=== PATIENT | female | born 1990 | race Caucasian/White ===

== ENCOUNTER → 2016-11-23 | Outpatient (CLI) | payer OTHER ==
[~2016-11-23] MED LIST: BCPILLS PO
== END | disposition home or self-care (01) ==
LOC: C.PAPS 16:52
PROVIDERS: ATTEND Obstetrics & Gynecology
DX: Z01.419 Encounter for gynecological examination (general) (routine) without abnormal findings (principal)

== ENCOUNTER → 2018-02-12 | Outpatient (CLI) | payer OTHER | END | disposition home or self-care (01) | LOC: C.PAPS 11:21 | PROVIDERS: ATTEND Physician Assistant | DX: Z01.419 Encounter for gynecological examination (general) (routine) without abnormal findings (principal) ==

== ENCOUNTER 2022-11-27 17:45 | Inpatient (IN) ==
--- NOTE | 2022-11-27 18:02 | Emergency Department Note ---
Impression & Plan Labor, precipitous, delivered ED Provider Note NAME: CATHLEEN VOGEL AGE: 32 SEX: F : 1990 ARRIVES VIA: Ambulance INFORMANT: Patient, ED PROVIDER(S): Shadi Tejada DO CHIEF COMPLAINT: Imminent delivery HPI: The patient is a 32-year-old female who presented to the emergency department with an eminent delivery. Patient is a prima who is approximately 39 weeks with a single intrauterine gestation. The patient noticed water breaking approximately 1 hour ago and since that time has had a rather quick progression of her labor. She was fully dilated according to the prehospital personnel. She was brought directly to room B1. The patient denies having any fevers or recent trauma. All of her work-up was done prenatally already with the [facility] group. Labor and delivery as well as pediatrics are at the bedside prior to the arrival of the patient. ROS: See above HPI for pertinent positives & negatives. A total of 10 systems reviewed and were otherwise negative. PAST MEDICAL HISTORY: See Below PAST SURGICAL HISTORY: See Below FAMILY HISTORY: See Below SOCIAL HISTORY: See Below HOME MEDICATIONS: See Below ALLERGIES: See Below VITALS: See Below PHYSICAL EXAMINATION: GENERAL: The patient is awake and alert. She appears to be uncomfortable and in pain. EYES: The conjunctivae are clear. The pupils are round and reactive. RESPIRATORY: Normal respiratory effort is noted there is no evidence of wheezing rhonchi or rales CARDIOVASCULAR: Regular rate and rhythm noted there no murmurs rubs or gallops normal S1 normal S2. GASTROINTESTINAL: The abdomen is gravid in appearance. PELVIS: External pelvic exam revealed a presenting head. Scant bleeding was noted.. SKIN: There is no obvious evidence of any rash. There are no petechiae, pallor or cyanosis noted. NEUROLOGIC: Patient is awake alert and oriented x3 MEDICAL DECISION MAKING: The patient is a 32-year-old female who presented to the emergency department for an evaluation after her water broke and she had an acute onset of labor. The patient was evaluated by the prehospital personnel. She was found to be completely dilated. OB and peds arrived prior to the patient. Breathing was set up. The MANAGER LPN physician arrived just as the patient delivered. There was a nuchal cord which resolved on delivery. Child was stimulated and was crying appropriately. The child was well-appearing. The child was stimulated and then given to the mother. Placenta delivery was still pending but at the request of OB and peds the patient was taken directly to labor and delivery for further expectant management and care. Triage Nursing notes reviewed. Prior medical records reviewed Vital Signs: reviewed and remarkable for no significant abnormalities Differential diagnosis: Differential diagnosis in this patient could include breech delivery, multiple gestation, premature delivery, a sending infection and other differential diagnoses were considered. ER treatment provided: See below Diagnostics interpreted by me: Consultation(s): none ED COURSE: Procedures: The child was delivered vaginally in room B1. Dr Sheikh had just arrived in the room. The [employer] nurses were present. Pediatrics was present. A nuchal cord was noted on delivery. The child was stimulated and was crying well. Cord was cut by the father. Past Med/Surg History Social History Smoking Status: Unknown if ever smoked Preferred Language: Australian Feels Safe at Home: Yes Results & Data (ED) Vital Signs Vital Signs - 24 hr 11/27/22 17:59 11/27/22 18:09 Oxygen Delivery Method Room Air Sepsis Recent Fever Within 48 Hours No Sepsis New/Unexplained Change in Mental Status No Sepsis Action Taken by Nursing No Action Required Administered Medications Discontinued Medications Butorphanol Tartrate (Butorphanol Tartrate 1 Mg/Ml Vial) Confirm Administered Dose 1 mg .ROUTE .STK-MED ONE Stop: 11/27/22 18:17 Last Admin: 11/27/22 18:55 Dose: 1 mg Documented By: RENA Co-signed By: MIGUEL A Lidocaine HCl (Lidocaine 1% Local 20 Ml Vial) Confirm Administered Dose 1 ml .ROUTE .STK-MED ONE Stop: 11/27/22 18:08 Last Admin: 11/27/22 18:55 Dose: 1 ml Documented By: RENA Lidocaine HCl (Lidocaine 1% Local 20 Ml Vial) Confirm Administered Dose 1 ml .ROUTE .STK-MED ONE Stop: 11/27/22 18:12 Last Admin: 11/27/22 18:55 Dose: 1 ml Documented By: RENA Lidocaine HCl (Lidocaine 1% Mpf 5 Ml Vial) Confirm Administered Dose 10 ml .ROUTE .STK-MED ONE Stop: 11/27/22 18:27 Last Admin: 11/27/22 18:56 Dose: Not Given Documented By: RENA Lidocaine HCl (Lidocaine 1% Mpf 5 Ml Vial) Confirm Administered Dose 10 ml .ROUTE .STK-MED ONE Stop: 11/27/22 18:29 Last Admin: 11/27/22 18:56 Dose: Not Given Documented By: RENA Oxytocin (Oxytocin 10 Units/Ml Vial) Confirm Administered Dose 10 units .ROUTE .STK-MED ONE Stop: 11/27/22 18:05 Last Admin: 11/27/22 18:56 Dose: Not Given Documented By: RENA Oxytocin (Oxytocin 30 Units/500ml Nss) Confirm Administered Dose 30 units IV .STK-MED ONE Stop: 11/27/22 18:06 Last Admin: 11/27/22 18:55 Dose: 30 units Documented By: RENA Discharge Plan Visit Data Chief Complaint: Vaginal Pain ED Provider: Shadi Tejada Discharge Problem: Labor, precipitous, delivered Patient Disposition: Admitted As Inpatient Discharge Instructions Interventions: ED Discharge Assessment Last Done: 11/27/22 18:09
[2022-11-27] MEDS ORDERED: OXYTOCIN 10 UNITS/ML VIAL ONE (18:04)
[2022-11-27] MEDS ORDERED: OXYTOCIN 30 UNITS/500ML NSS IV ONE (18:05)
[2022-11-27] MEDS ORDERED: LIDOCAINE 1% LOCAL 20 ML VIAL ONE ×2 (18:07→18:11)
[2022-11-27] MEDS ORDERED: BUTORPHANOL TARTRATE 1 MG/ML VIAL ONE ×2 (18:16→19:06)
[2022-11-27] MEDS ORDERED: LIDOCAINE 1% MPF 5 ML VIAL ONE ×2 (18:26→18:28)
[2022-11-27] MEDS ORDERED: DIPHTHERIA/TETANUS/PERTUSSIS 0.5mL SYR/VIAL (Age 7+yrs) IM ONE (19:13)
[2022-11-27] MEDS ORDERED: OXYTOCIN 30 UNITS/500 ML BAG IV PRN (19:13)
[2022-11-27] MEDS ORDERED: oxyCODONE/ACETAMINOPHEN 5mg/325mg TAB PO PRN (19:13)
[2022-11-27] MEDS ORDERED: BUTORPHANOL TARTRATE 1 MG/ML VIAL IV PRN (19:13)
[2022-11-27] MEDS ORDERED: MEASLES, MUMPS & RUBELLA VIRUS VIAL SQ ONE (19:13)
[2022-11-27] MEDS ORDERED: HYDROCORTISONE ACETATE 25 MG SUPP PR PRN (19:13)
[2022-11-27] MEDS ORDERED: BENZOCAINE 20% AER SPR 82.5 GM CAN EXT PRN (19:13)
[2022-11-27] MEDS ORDERED: ACETAMINOPHEN 325 MG TAB PO PRN (19:13)
[2022-11-27] MEDS ORDERED: bisacodyL 10 MG SUPP PR PRN (19:13)
--- NOTE | 2022-11-27 19:25 | Delivery Summary ---
Vaginal Delivery Summary Date of Service November 27, 2022 Vaginal Delivery Summary Patient is a 32-year-old G1, P0 at 38 weeks and 6 days of gestation who started to feel contractions around 11 AM but they were irregular every 10 to 15 minutes and mild. She felt a gush of clear fluid leakage at 4 PM and then contractions started after 4:30 PM. She called our office and recommended to come to labor and delivery. After [place] on the way here she felt more contractions and pressure and urge to push. They called ambulance and they came with ambulance to the ER where she was in active labor and head was over an intact perineum. I met her in the ER in room B1. With the next contraction patient pushed and delivered the head without difficulty. Then the shoulders were delivered with minimal traction. There was a nuchal cord around the neck x1 which was reduced and the baby was handed off to the mother that her mouth and nose were suctioned, the cord was clamped x2 and cut at 1 minute delay. The baby was vigorously moving and crying at that point. The time of the delivery was 1748. The baby was taken off by pediatric team cleaned dried and taken off to nursery. Patient had placenta in uterus and had no bleeding. She was taken to labor and delivery in the stretcher immediately after delivery. In labor room the placenta was found to be in the vagina, delivered spontaneously as intact and complete at 1804. Uterus was explored and found to be empty, the lower segment was cleared of all clots and debris's, fundus was firm and EBL was 200 mL. In the vagina and perineum were checked for lacerations. There was an second- degree laceration in the posterior vagina, extending into the hymenal ring as well as perineal skin at 7 o'clock position. And there was a firm, purple, about 4 x 5 cm vaginal hematoma on the right medial wall. The rest of the vagina and labia were intact. This was infiltrated with 1% lidocaine for local anesthesia. Patient was feeling a lot of discomfort and sensitivity in the vagina. I offered her IV Stadol and she accepted. She received 1 mg of IV Stadol and then this laceration was repaired with 2-0 Vicryl starting from the corner of vaginal mucosa in a continuous fashion. The bulbocavernosus muscles were reapproximated with the same suture and then skin was closed with 3-0 Vicryl in a subcuticular fashion. There was a oozing in the middle of the repair at 6 o'clock position at the hymenal ring. It was repaired with 2-0 Vicryl with [id number] stitches. It was still oozing minimally and patient was uncomfortable. It was covered with Aiyana powder and then pressure was applied with 2 sterile sponges to be kept for about 2 hours and then remove. I checked vaginal hematoma multiple times during this repair and it was stable with no extension for about an hour long. Verbalized was emptied by myself with straight catheter and 100 mL of clear urine was obtained. The mom and baby tolerated procedure well. There was a viable male , Apgars 8/9, Weigh it 3135 gr. No complications happened and I was present during whole procedure.
[2022-11-27] MEDS: IBUPROFEN 600 MG TAB PO PRN (22:15)
[2022-11-27] MEDS: DOCUSATE SODIUM 100 MG CAP PO SCH (22:16)
[2022-11-27 22:33] LABS: Basophils # (auto) 0.04 K/uL (0-0.2); Basophils % (auto) 0.3 %; Eosinophils # (auto) 0.02 K/uL (0-0.50); Eosinophils % (auto) 0.1 %; Hematocrit (blood only) 34.1 % (34.1-44.9); Hemoglobin 11.3 g/dl (12.0-16.0); Immature Granulocytes # (auto) 0.13 K/uL (0.00-0.02); Immature Granulocytes % (auto) 0.9 %; Mean Corpuscular Hemoglobin 27.8 pg (25.0-34.0); Mean Corpuscular Hgb Conc 33.1 g/dL (32.0-36.0); Mean Platelet Volume 11.7 fL (9.4-12.3); Monocytes # (auto) 0.74 K/uL (0.24-0.82); Monocytes % (auto) 4.9 %; Neutrophils # (auto) 13.28 K/uL (1.4-6.5); Neutrophils % (auto) 87.8 %; Platelet Count 249 K/uL (130-400); RDW Coefficient of Variation 14.4 % (11.5-14.5); RDW Standard Deviation 43.6 fL (36.4-46.3); Red Blood Count 4.06 M/uL (3.93-5.22); White Blood Count 15.11 K/ul (4.8-10.8)
[2022-11-28] MEDS: IBUPROFEN 600 MG TAB PO PRN ×4 (03:25→22:48)
[2022-11-28 06:21] LABS: Hematocrit (blood only) 28.1 % (34.1-44.9); Hemoglobin 9.3 g/dl (12.0-16.0); Mean Corpuscular Hemoglobin 27.5 pg (25.0-34.0); Mean Corpuscular Hgb Conc 33.1 g/dL (32.0-36.0); Mean Corpuscular Volume 83.1 fL (80.0-100.0); Mean Platelet Volume 11.5 fL (9.4-12.3); Platelet Count 204 K/uL (130-400); RDW Coefficient of Variation 14.5 % (11.5-14.5); Red Blood Count 3.38 M/uL (3.93-5.22); White Blood Count 10.33 K/ul (4.8-10.8)
[2022-11-28] MEDS: DOCUSATE SODIUM 100 MG CAP PO SCH ×2 (08:19→20:29)
[2022-11-28] MEDS: PRENATAL VITAMIN 1 TAB PO SCH (08:19)
[2022-11-28] MEDS: FERROUS SULFATE 325 MG TAB PO SCH (08:20)
--- NOTE | 2022-11-28 08:54 | Obstetrical Progress Note ---
Date of Service November 28, 2022 Assessment & Plan (1) Normal course: Continue routine course Plan to discharge home tomorrow if doing well Subjective Ambulation: ambulating normally Voiding: no voiding problems Passing Gas:: Yes Diet Tolerance:: regular diet Lochia:: Moderate Feeding Type:: breast feeding Current Pain Level(1-10): 0 Patient doing well at this time, no complaints Physical Exam Constitutional WD/WN, vitals as above Respiratory normal respiratory effort, lungs clear to auscultation Cardiovascular RRR, no murmur, no edema Gastrointestinal (Abdomen) normal bowel sounds, soft, nontender, no hepatosplenomegaly Results & Data ([facility]) Vital Signs (Past 12 Hours) Vital Signs Temp Pulse Pulse Resp BP BP Pulse Ox 11/28/22 03:30 36.3 C L 87 18 100/65 95 11/27/22 23:45 36.7 C 84 16 105/67 97 11/27/22 21:12 36.7 C 16 11/27/22 21:57 80 125/79 11/27/22 21:12 100 H 119/75 11/27/22 20:57 34 L 115/62 O2 Del Method 11/28/22 03:30 Room Air 11/27/22 23:45 Room Air 11/27/22 21:12 11/27/22 21:57 11/27/22 21:12 11/27/22 20:57 Laboratory Results Laboratory Results WBC 10.33 K/ul (4.8-10.8) 11/28/22 05:55 RBC 3.38 M/uL (3.93-5.22) L 11/28/22 05:55 Hgb 9.3 g/dl (12.0-16.0) L 11/28/22 05:55 Hct 28.1 % (34.1-44.9) L 11/28/22 05:55 MCV 83.1 fL (80.0-100.0) 11/28/22 05:55 MCH 27.5 pg (25.0-34.0) 11/28/22 05:55 MCHC 33.1 g/dL (32.0-36.0) 11/28/22 05:55 RDW Std Deviation 43.0 fL (36.4-46.3) 11/28/22 05:55 RDW Coeff of Wilfredo 14.5 % (11.5-14.5) 11/28/22 05:55 Plt Count 204 K/uL (130-400) 11/28/22 05:55 MPV 11.5 fL (9.4-12.3) 11/28/22 05:55 Immature Gran % (Auto) 0.9 % 11/27/22 19:44 Neut % (Auto) 87.8 % 11/27/22 19:44 Lymph % (Auto) 6.0 % 11/27/22 19:44 [place] % (Auto) 4.9 % 11/27/22 19:44 Eos % (Auto) 0.1 % 11/27/22 19:44 Baso % (Auto) 0.3 % 11/27/22 19:44 Neut # (Auto) 13.28 K/uL (1.4-6.5) H 11/27/22 19:44 Lymph # (Auto) 0.90 K/uL (1.2-3.4) L 11/27/22 19:44 [place] # (Auto) 0.74 K/uL (0.24-0.82) 11/27/22 19:44 Eos # (Auto) 0.02 K/uL (0-0.50) 11/27/22 19:44 Baso # (Auto) 0.04 K/uL (0-0.2) 11/27/22 19:44 Immature Gran # (Auto) 0.13 K/uL (0.00-0.02) H 11/27/22 19:44 SARS-CoV-2, RNA, NAAT NEGATIVE (NEGATIVE) 11/27/22 19:20 Blood Type O Positive 11/27/22 19:38 Antibody Screen NEGATIVE 11/27/22 19:38
[2022-11-28] MEDS ORDERED: bisacodyL 5 MG TABEC PO SCH (20:00)
[2022-11-29] MEDS: IBUPROFEN 600 MG TAB PO PRN ×2 (06:04→13:09)
[2022-11-29 07:19] LABS: Hematocrit (blood only) 28.9 % (34.1-44.9); Hemoglobin 9.5 g/dl (12.0-16.0)
[2022-11-29] MEDS: DOCUSATE SODIUM 100 MG CAP PO SCH (09:03)
[2022-11-29] MEDS: FERROUS SULFATE 325 MG TAB PO SCH (09:03)
[2022-11-29] MEDS: PRENATAL VITAMIN 1 TAB PO SCH (09:03)
--- NOTE | 2022-11-29 09:48 | Obstetrical Progress Note ---
Date of Service November 29, 2022 Subjective Ambulation: ambulating normally Voiding: no voiding problems Passing Gas:: Yes Diet Tolerance:: regular diet Lochia:: Small Feeding Type:: breast feeding Current Pain Level(1-10): 0 doing well. plans for d/c Physical Exam Constitutional WD/WN, vitals as above Gastrointestinal (Abdomen) Inspection/Auscultation: abdomen normal to inspection fundus firm below U. abdomen soft and non-tender Musculoskeletal Extremities: extremities normal to inspection Skin no rashes, warm and dry Neurologic patellar DTR's 2+ bilat, sensation intact Psychiatric A+Ox3, euthymic affect Results & Data ([facility]) Vital Signs (Past 12 Hours) Vital Signs Temp Pulse Resp BP Pulse Ox O2 Del Method 11/29/22 07:40 36.9 C 72 18 104/69 98 Room Air 11/28/22 23:50 36.6 C 68 16 99/66 L 97 Room Air Laboratory Results Laboratory Results - last 72 hr 11/27/22 11/27/22 11/27/22 19:20 19:38 19:44 WBC 15.11 H RBC 4.06 Hgb 11.3 L Hct 34.1 MCV 84.0 MCH 27.8 MCHC 33.1 RDW Std Deviation 43.6 RDW Coeff of Wilfredo 14.4 Plt Count 249 MPV 11.7 Immature Gran % (Auto) 0.9 Neut % (Auto) 87.8 Lymph % (Auto) 6.0 [place] % (Auto) 4.9 Eos % (Auto) 0.1 Baso % (Auto) 0.3 Neut # (Auto) 13.28 H Lymph # (Auto) 0.90 L [place] # (Auto) 0.74 Eos # (Auto) 0.02 Baso # (Auto) 0.04 Immature Gran # (Auto) 0.13 H SARS-CoV-2, RNA, NAAT NEGATIVE Blood Type O Positive Antibody Screen NEGATIVE 11/28/22 11/29/22 05:55 06:48 WBC 10.33 RBC 3.38 L Hgb 9.3 L 9.5 L Hct 28.1 L 28.9 L MCV 83.1 MCH 27.5 MCHC 33.1 RDW Std Deviation 43.0 RDW Coeff of Wilfredo 14.5 Plt Count 204 MPV 11.5 Immature Gran % (Auto) Neut % (Auto) Lymph % (Auto) [place] % (Auto) Eos % (Auto) Baso % (Auto) Neut # (Auto) Lymph # (Auto) [place] # (Auto) Eos # (Auto) Baso # (Auto) Immature Gran # (Auto) SARS-CoV-2, RNA, NAAT Blood Type Antibody Screen
== END 2022-11-29 15:40 | disposition home or self-care (01) | DRG 806 ==
LOC: EDBD → ED 17:45 → 4S1 18:09 → MERGE 18:17 → 4E2 23:17